=== PATIENT | male | born 1990 | race Hispanic/Latino ===

== ENCOUNTER 2024-07-07 20:06 | Observation (INO) | payer OTHER, SELFPAY ==
[2024-07-07 20:33] LABS: #Basophils 0.04 10x3/uL (0.0-0.2); #Eosinophils Less than 0.03 10x3/uL (0.0-0.7); %Basophils 0.3 % (0.0-1.0); %Eosinophils 0.2 % (0.0-10.0); %Lymphocytes 15.9 % (21.0-51.0); %Monocytes 9.5 % (0.0-10.0); %Neutrophils 73.6 % (42.0-75.0); Hematocrit 43.3 % (42.0-52.0); Hemoglobin 14.6 g/dL (14.0-18.0); Mean Corpuscular HGB CONC 33.7 g/dL (32.0-36.0); Mean Corpuscular Hemoglobin 29.4 pg (27.0-31.0); Mean Corpuscular Volume 87.3 fL (78.0-98.0); Mean Platelet Volume 9.9 fL (7.4-10.4); Platelet Count 200 10x3/uL (130-400); RBC Distribution Width 13.1 % (11.5-14.5); Red Blood Cell (RBC) Count 4.96 mill/uL (4.70-6.10)
[2024-07-07 20:49] LABS: ALT (SGPT) 16 U/L (8-55); AST (SGOT) 19 U/L (5-34); Albumin 3.9 g/dL (3.5-5.0); Alkaline Phosphatase 58 U/L (40-110); Anion Gap 13 mmol/L (10-20); BUN (Urea Nitrogen) 8 mg/dL (8.9-20.6); Bilirubin, Total 0.6 mg/dL (0.2-1.2); Calc. Creatinine Clearance 0 mL/min (70-130); Calcium 9.2 mg/dL (7.8-10.44); Carbon Dioxide 24 mmol/L (22-29); Chloride 104 mmol/L (98-107); Estimated GFR 119; Glucose 101 mg/dL (70-105); Potassium 4.3 mmol/L (3.5-5.1); Protein, Total 7.9 g/dL (6.0-8.3); Sodium 137 mmol/L (136-145)
[2024-07-07] MEDS ORDERED: Dextrose 5% in Water 1,000 ML IV PRN (21:16)
[2024-07-07] MEDS ORDERED: Ondansetron PF 4 MG/2 ML Vial IVP PRN (21:16)
[2024-07-07] MEDS ORDERED: Glucagon 1 MG/ML KIT IM PRN (21:16)
[2024-07-07] MEDS ORDERED: Morphine 2 MG/ML VIAL SLOW IVP PRN (21:16)
[2024-07-07] MEDS ORDERED: Dextrose 50% Abboject 50 ML SYRINGE SLOW IVP PRN (21:16)
[2024-07-07] MEDS ORDERED: Morphine 4 MG/ML VIAL ONE (22:13)
[2024-07-07] MEDS ORDERED: Ondansetron PF 4 MG/2 ML Vial ONE ×2 (22:13→23:18)
[2024-07-07] MEDS ORDERED: EPINEPHrine 1 MG/ML VIAL ONE (22:26)
[2024-07-07] MEDS ORDERED: Bupivacaine 0.25% HCL 30 ML VIAL ONE (22:26)
[2024-07-07] MEDS ORDERED: Lidocaine 1% PF 5 ML VIAL ONE (22:27)
[2024-07-07] MEDS ORDERED: Rocuronium Bromide 10 MG/ML (10ML VIAL) ONE (22:27)
[2024-07-07] MEDS ORDERED: fentaNYL PF 100 MCG/2 ML SYRINGE ONE (22:27)
[2024-07-07] MEDS ORDERED: PROPOFOL 20 ML ONE (22:27)
[2024-07-07] MEDS ORDERED: Piperacillin/Tazobactam 3.375 GM VIAL ONE (22:47)
[2024-07-07] MEDS ORDERED: Sodium Chloride 0.9% 100 ML ONE (22:47)
[2024-07-07] MEDS ORDERED: SUCCINYLCHOLINE/SOD CL,ISO/PF 200 MG/10 ML SYRINGE FS ONE (22:58)
[2024-07-07] MEDS ORDERED: Dexamethasone 4 mg/ml Vial ONE (23:18)
[2024-07-07] MEDS ORDERED: ePHEDrine Sulfate 50 MG/10 ML VIAL ONE (23:21)
[2024-07-07] MEDS ORDERED: SUGAMMADEX SODIUM 200 MG/2 ML VIAL ONE (23:29)
[2024-07-07] MEDS ORDERED: fentaNYL 50 mcg/mL 1 mL Vial ONE (23:37)
[2024-07-07] MEDS ORDERED: Meperidine HCl/PF 25 MG (1 mL) VIAL ONE (23:48)
[2024-07-08] MEDS: Piperacillin/Tazobactam 3.375 GM in Sodium Chloride 0.9% 100 ML IVPB SCH ×2 (01:03→02:12)
[2024-07-08] MEDS: Sodium Chloride 0.9% 1,000 ML IV SCH (01:04)
[2024-07-08 01:10] VITALS: BMI 28.3
[2024-07-08 06:00] LABS: #Basophils Less than 0.03 10x3/uL (0.0-0.2); #Eosinophils Less than 0.03 10x3/uL (0.0-0.7); %Basophils 0.2 % (0.0-1.0); %Monocytes 7.6 % (0.0-10.0); %Neutrophils 85.4 % (42.0-75.0); Hematocrit 37.8 % (42.0-52.0); Hemoglobin 12.4 g/dL (14.0-18.0); Mean Corpuscular HGB CONC 32.8 g/dL (32.0-36.0); Mean Corpuscular Hemoglobin 29.5 pg (27.0-31.0); Mean Platelet Volume 10.9 fL (7.4-10.4); Platelet Count 181 10x3/uL (130-400); RBC Distribution Width 13.2 % (11.5-14.5)
[2024-07-08 06:19] LABS: ALT (SGPT) 13 U/L (8-55); AST (SGOT) 14 U/L (5-34); Albumin 3.2 g/dL (3.5-5.0); Alkaline Phosphatase 48 U/L (40-110); Anion Gap 11 mmol/L (10-20); BUN (Urea Nitrogen) 9 mg/dL (8.9-20.6); Bilirubin, Total 0.6 mg/dL (0.2-1.2); Calc. Creatinine Clearance 142 mL/min (70-130); Calcium 8.1 mg/dL (7.8-10.44); Carbon Dioxide 26 mmol/L (22-29); Chloride 105 mmol/L (98-107); Estimated GFR 113; Globulin 2.8 g/dL (2.4-3.5); Glucose 124 mg/dL (70-105); Potassium 4.8 mmol/L (3.5-5.1); Sodium 137 mmol/L (136-145)
[2024-07-08 07:22] VITALS: BP 106/70
[2024-07-08] MEDS: traMADol HCl 50 MG TAB PO PRN (08:15)
[2024-07-08] MEDS ORDERED: Acetaminophen 325 MG TAB PO PRN (09:26)
[2024-07-08 09:45] VITALS: TEMP 98
== END 2024-07-08 10:41 | disposition home or self-care (01) ==
LOC: ERS 20:06 → SDC 22:50 → SURG A 22:51
PROVIDERS: ADMIT Surgery; ATTEND Surgery
PROC: 0DTJ4ZZ Resection of Appendix, Percutaneous Endoscopic Approach (ICD-10-PCS; principal; 2024-07-08)
DX: K35.30 Acute appendicitis with localized peritonitis, without perforation or gangrene (principal)
CPT/HCPCS: 36415; 80053; 85025; 88304; 96374; 96375; G0378; J0171; J0665; J1100; J2175; J2272; J2405; J2543; J2704; J3010; J7030